=== PATIENT | male | born 1940 | race Caucasian/White ===

== ENCOUNTER → 2017-12-02 13:22 | Outpatient (CLI) | payer OTHER, SELFPAY | PROVIDERS: PCP Physician Assistant; Visit Provider Physician Assistant | DX: R97.20 Elevated prostate specific antigen [PSA] (principal) | CPT/HCPCS: 36415; 84153 ==

== ENCOUNTER → 2017-12-02 13:35 | Outpatient (CLI) | payer OTHER, SELFPAY ==
--- NOTE | 2017-12-02 13:37 | DI.RAD.S_ITS ---
PROCEDURE: XR CERVICAL SPINE 2V OR 3V INDICATIONS: 77 year-old male with neck pain. TECHNIQUE: 3 view(s) of the cervical spine were acquired. COMPARISON: None. FINDINGS: Bones: No fractures or dislocations to the T1 level. The lateral masses of C1 appear intact on the odontoid view. There is mild C5-C6 and C6-C7 disc degeneration. No suspicious bony lesions. Soft tissues: No prevertebral soft tissue swelling. IMPRESSION: Mild C5-C6 and C6-C7 disc degeneration. Dictated by: Shahzad Funk M.D. on 12/02/2017 at 14:00 Approved by: Shahzad Funk M.D. on 12/02/2017 at 14:01
== END ==
PROVIDERS: Family Provider Physician Assistant; PCP Physician Assistant; Visit Provider Physician Assistant
DX: M50.322 Other cervical disc degeneration at C5-C6 level (principal); R51 Headache
CPT/HCPCS: 36415; 72040; 84153

== ENCOUNTER → 2018-01-30 11:55 | Outpatient (CLI) | payer OTHER, SELFPAY ==
--- NOTE | 2018-01-30 11:59 | DI.MRI.S_ITS ---
PROCEDURE: MR CERVICAL SPINE WO CON INDICATIONS: Cervical spine pain - lower neck TECHNIQUE: Noncontrast sagittal T1 spin echo and T2 fast spin echo, sagittal STIR, foraminal oblique sagittal T2 fast spin echo, and axial gradient echo or T2 fast spin echo through the cervical spine. COMPARISON: [facility], CR, XR CERVICAL SPINE 2V OR 3V, 12/02/2017, 13:38. FINDINGS: Image quality: Excellent. Alignment and Curvature: There is normal bony alignment. Bone Marrow: Mild reactive endplate changes noted adjacent to the C5-C6 disc. Spinal Cord: Visualized spinal cord has normal size and signal. No cerebellar tonsillar herniation. Paraspinous Soft Tissues: No paravertebral masses. Prevertebral soft tissues are normal in thickness. C2-C3: Loss of disc signal. Mild, diffuse disc bulge. Small central disc protrusion superimposed on diffuse disc bulge. No central stenosis. Mild bilateral neural foraminal narrowing. No neural impingement. C3-C4: Loss of disc signal. Mild, diffuse disc bulge with small central disc protrusion. Moderate narrowing of the central canal. Mild left facet hypertrophy. Mild right and moderate left neural foraminal narrowing. No neural impingement. C4-C5: Loss of disc signal and slight loss of disc height. Mild, diffuse disc bulge with small central disc protrusion. Moderate narrowing of the central canal. Mild left facet hypertrophy. Mild bilateral uncovertebral joint hypertrophy. Moderate right and severe left neural foraminal narrowing with flattening deformity of the exiting left C5 nerve root. C5-C6: Loss of disc signal and height. Mild, diffuse disc bulge. Moderate narrowing of the central canal. Mild right and moderate left facet hypertrophy. Moderate bilateral uncovertebral joint hypertrophy. Severe right and moderate left neural foraminal narrowing with flattening deformity exiting right C6 nerve root. C6-C7: Loss of disc signal and height. Mild, diffuse disc bulge. Mild narrowing of the central canal. Mild right uncovertebral joint hypertrophy. Moderate right and mild left neural foraminal narrowing. No neural impingement. C7-T1: Loss of disc signal. No central stenosis. No neural foraminal narrowing. IMPRESSION: 1. Multilevel degenerative disc disease. 2. Multilevel facet arthropathy and uncovertebral joint hypertrophy. 3. Moderate C3-C4, C4-C5 and C5-C6 central canal narrowing. Mild C6-C7 central canal narrowing. 4. Moderate right and severe left C4-C5 neural foraminal narrowing. Severe right and moderate left C5-C6 neural foraminal narrowing. Moderate right and mild left C6-C7 neural foraminal narrowing. Mild right and moderate left C3-C4 neural foraminal narrowing. Mild bilateral C2-C3 neural foraminal narrowing. 5. Flattened deformity of the exiting left C5 nerve root and the exiting right C6 nerve root secondary to neural foraminal narrowing. Please correlate with clinical data. Dictated by: Sarahi Arnold MD, PhD on 01/30/2018 at 14:28 Approved by: Sarahi Arnold MD, PhD on 01/30/2018 at 14:45
--- NOTE | 2018-01-30 11:59 | DI.MRI.S_ITS ---
PROCEDURE: MR HEAD/BRAIN WO CON INDICATIONS: Headache > 3 months left side base of skull/occiput TECHNIQUE: Non-contrast axial T1 spin echo, axial T2 fast spin echo, sagittal and axial FLAIR, coronal T2 fast spin echo, axial gradient echo, axial diffusion and ADC through the brain. COMPARISON: [facility], CT, HEAD WITHOUT CONTRAST, 08/10/2007, 19:45. FINDINGS: Image quality: Excellent. CSF spaces: Ventricles appear symmetric in size and shape. Basal cisterns are patent. No extra-axial fluid collections. Brain: No intracranial bleeds or mass effects. There is mild cerebral volume loss for age. There are moderate to severe periventricular and deep white matter chronic small vessel ischemic changes. Brainstem appears normal. Diffusion-weighted images show no acute ischemic insults. No areas of encephalomalacia. No GRE weighted abnormalities identified in the brain parenchyma. Normal intravascular flow voids are present. Skull and face: Calvarial bone marrow is normal in signal. Orbits are normal. Sinuses: Sinuses and mastoids are clear. IMPRESSION: 1. No acute intracranial disease process. 2. Mild, diffuse cerebral volume loss. 3. Moderate to severe periventricular and subcortical white matter chronic microvascular ischemic changes. Dictated by: Sarahi Arnold MD, PhD on 01/30/2018 at 14:20 Approved by: Sarahi Arnold MD, PhD on 01/30/2018 at 14:24
== END ==
PROVIDERS: Family Provider Physician Assistant; PCP Physician Assistant; Visit Provider Physician Assistant
DX: M50.31 Other cervical disc degeneration, high cervical region (principal); M47.812 Spondylosis without myelopathy or radiculopathy, cervical region; M48.02 Spinal stenosis, cervical region; R51 Headache
CPT/HCPCS: 70551; 72141

== ENCOUNTER → 2018-03-10 14:04 | Outpatient (CLI) | payer OTHER, SELFPAY ==
--- NOTE | 2018-03-10 14:05 | DI.MRI.S_ITS ---
PROCEDURE: MR LUMBAR SPINE WO CON INDICATIONS: Low back pain right side TECHNIQUE: Noncontrast sagittal T1 spin echo and T2 fast echo, sagittal STIR, axial T1 and T2 fast spin echo through the lumbar spine. In cases with scoliosis, additional coronal T2 fast spin echo may be performed. COMPARISON: [facility], , L-SPINE WITHOUT CONTRAST, 12/02/2014, 10:42. [facility], CR, SPINE LUMB 2 OR 3VW, 01/05/2015, 15:38. FINDINGS: Image quality: Excellent. Alignment and Curvature: 5 lumbar type vertebral bodies are present by plain film. There is normal bony alignment. Bone Marrow: Marrow is of normal overall signal. No acute vertebral body compression fractures. Increased, mild reactive signal throughout the endplates of the lumbar spine. Spinal Cord: Conus medullaris terminates at the mid L1 level. Visualized cord demonstrates normal signal and size. There is a small lipoma of the filum terminalis, which does not contribute significantly to canal stenosis. Paraspinous Soft Tissues: No paravertebral masses. L1-L2: Moderate disc desiccation. Mild diffuse disc bulge. Mild facet hypertrophy bilaterally. Mild canal stenosis. Mild foraminal stenosis bilaterally. L2-L3: Moderate disc desiccation and mild disc height loss and mild diffuse disc bulge. Mild facet hypertrophy bilaterally. Mild canal stenosis. Mild foraminal stenosis bilaterally. No change. L3-L4: Moderate disc desiccation and moderate diffuse disc bulge. Mild disc height loss. Mild facet hypertrophy bilaterally. Mild canal stenosis. Mild foraminal stenosis bilaterally. No change. L4-L5: Moderate disc height loss and desiccation. Mild diffuse disc bulge/osteophyte. Mild facet and ligament hypertrophy. Mild canal stenosis. Moderate foraminal stenosis bilaterally. L5-S1: Moderate disc desiccation. Mild facet hypertrophy bilaterally. No significant canal stenosis. Mild foraminal stenosis bilaterally. No change. IMPRESSION: 1. Increased multilevel degenerative disc disease. Multilevel facet osteoarthritis. 2. No change in mild multilevel canal and foraminal stenoses. No neural impingement. Dictated by: Cuauhtemoc Mathew M.D. on 03/10/2018 at 16:26 Approved by: Cuauhtemoc Mathew M.D. on 03/10/2018 at 16:30
== END ==
PROVIDERS: Family Provider Physician Assistant; PCP Physician Assistant; Visit Provider Physician Assistant
DX: M54.5 Low back pain (principal); M51.16 Intervertebral disc disorders with radiculopathy, lumbar region; M47.26 Other spondylosis with radiculopathy, lumbar region; M48.061 Spinal stenosis, lumbar region without neurogenic claudication; M48.07 Spinal stenosis, lumbosacral region; N50.811 Right testicular pain; R26.9 Unspecified abnormalities of gait and mobility
CPT/HCPCS: 72148

== ENCOUNTER 2018-04-17 22:38 | Emergency (ER) | payer OTHER, SELFPAY ==
[2018-04-17 22:45] VITALS: BP 140/84; PULSE 69; RESP 16; TEMP 36.7; O2SAT 98; BMI 19.0
[2018-04-18] VITALS: BP 126/69; PULSE 60; RESP 16; O2SAT 98
--- NOTE | 2018-04-18 00:03 | DI.RAD.S_ITS ---
PROCEDURE: XR HIP W PEL IF DONE RT 2V INDICATIONS: pain no injury TECHNIQUE: AP pelvis with lateral view(s) of the right hip(s). COMPARISON: None. FINDINGS: Bones: No fractures or dislocations. Pelvic ring appears intact. No suspicious bony lesions. Mild bilateral hip osteoarthritis. Mild lumbar spine degenerative changes. Soft tissues: The visualized bowel gas pattern is normal. No suspicious soft tissue calcifications. IMPRESSION: No fracture. No acute osseous lesion. If symptoms and/or clinical suspicion for pathology persists, further assessment with repeat radiographs (7-10 days) or advanced imaging (e.g. CT, MRI or bone scan) may be helpful. Dictated by: Sarahi Arnold MD, PhD on 04/18/2018 at 8:44 Approved by: Sarahi Arnold MD, PhD on 04/18/2018 at 8:44
--- NOTE | 2018-04-18 00:03 | ED_ITS ---
HPI - Extremity Injury (Lower) General Chief Complaint: Extremity Injury, Lower Stated Complaint: RT HIP AND GROIN PAIN Time Seen by Provider: 04/17/18 23:27 Source: patient Mode of arrival: ambulatory Limitations: no limitations History of Present Illness HPI Narrative: Patient is a 78-year-old male who presents with right hip pain. He said he has had ongoing right hip pain for number of years however over the last 8 days has progressively gotten worse. He had an MRI at the end of March which did show increased multi level degenerative disc disease. Along with arthritis. He does have some radiation around to his groin and down his foot. He is taking meloxicam and Tylenol without any relief. He denies any fever. If he is resting he is okay. But once he starts weight-bearing and becomes quite painful for him. He has not fallen. Denies any testicular pain Related Data Home Medications Medication Instructions Recorded Confirmed acetaminophen 1,300 mg PO Q8HP PRN #0 12/18/16 02/13/18 ascorbic acid (vitamin C) 500 mg 1,000 mg PO .QDAY cap 12/09/17 02/13/18 capsule cholecalciferol (vitamin D3) 1,000 2,000 unit PO DAILY 12/09/17 02/13/18 unit capsule ibuprofen 200 mg tablet 200 mg PO QID PRN 02/08/18 02/13/18 Meloxicam 15 mg PO PRN 02/13/18 02/13/18 Previous Rx's Medication Instructions Recorded prednisone 20 mg PO DAILY #5 tab 04/18/18 tramadol 25 mg PO Q6H PRN #10 tab 04/18/18 Allergies Allergy/AdvReac Type Severity Reaction Status Date / Time amoxicillin Allergy headaches Verified 04/17/18 22:45 cephalexin Allergy stomach Verified 04/17/18 22:45 pain Review of Systems Review of Systems GENERAL: Denies chills, fatigue, malaise, fever, sweats, travel HEENT: Denies sinus pain, ear pain, sore throat, difficulty swallowing, neck pain RESPIRATORY: Denies dyspnea, cough, wheezing, hemoptysis, sputum. CARDIOVASCULAR: Denies chest pain, palpitations, orthopnea, edema GASTROINTESTINAL: Denies nausea, vomiting, abdominal pain, diarrhea, constipation, melena. : Denies dysuria, frequency, incontinence, hematuria, urinary retention, flank pain. MUSCULOSKELETAL: Right hip pain see HPI SKIN: No rash, no erythema, no pruritus NEUROLOGIC: Denies weakness, dizziness, headache, numbness, change in speech, confusion PSYCHIATRIC: No concerning psychosocial issues. 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) Cataracts, bilateral (Chronic Unknown) Degenerative disc disease, lumbar (Chronic Unknown) Elevated PSA (Chronic Unknown) Essential tremor (Chronic Unknown) Surgical History History of inguinal hernia repair (Resolved 11/2013) Hx of removal of cyst (Resolved 2009) Hx of vasectomy (Resolved 1968) Family History Father Kidney disease Mother Heart disease Brother Cancer Social History Smoking Status: Never smoker second hand exposure: No alcohol intake: former substance use type: does not use Exam Initial Vital Signs Initial Vital Signs: Vital Signs Temperature 98.1 F 04/17/18 22:45 Pulse Rate 69 04/17/18 22:45 Respiratory Rate 16 04/17/18 22:45 Blood Pressure 140/84 04/17/18 22:45 Pulse Oximetry 98 04/17/18 22:45 GENERAL: frail alert male in no acute distress HEENT: Head atraumatic,EOMI, pupils reactive, face symmetric CARDIOVASCULAR: Regular rate and rhythm without murmurs, rubs or gallops. RESPIRATORY: Breath sounds equal bilaterally, no wheezes rales or rhonchi. ABDOMEN: Soft, nontender. Normoactive bowel sounds all 4 quadrants. No guarding or rebound. : No CVA tenderness EXTREMITIES: Normal range of motion, no clubbing or edema. Neurovascularly intact NEUROLOGICAL: Alert and oriented x4.Normal gait and speech. Cranial nerves II through XII grossly intact. SKIN: Warm, dry, no laceration, no petechiae, no rashes or lesions. Course Orders Ordered: ED Orders 04/18/18 00:03 XR hip w pel if done RT 2V Stat Vital Signs - 8 hr 04/17/18 22:45 04/18/18 00:00 Temperature 98.1 F Pulse Rate 69 60 Respiratory Rate 16 16 Blood Pressure 140/84 Blood Pressure [Right Arm] 126/69 Pulse Oximetry 98 98 MDM - Extremity Injury (Lower) Imaging Data right hip x ray: Attestation: I personally reviewed and interpreted this imaging study as follows: My impression: No fracture MDM Narrative Medical decision making narrative: I have reviewed the interpretation of MRI. Pain today is likely a neuropathy and arthritis. He has a short drive home. Discussed with him pain medication however he says he does not have trouble sleeping at night and does not need any now. The he has been taking meloxicam for the last 8 days without any relief. Will try him on a short course of prednisone and tramadol. Discussed with him warning signs of tramadol and that it may increase falling however patient is already taking nonnarcotic medications. And still continues to have pain. Discharge Plan Departure Patient Disposition: Home Clinical Impression: Arthritis pain, hip, Neuropathy Discharge Date/Time: 04/18/18 00:51 Interventions: ED Discharge Assessment Last Done: 04/18/18 00:50 Instructions: Peripheral Neuropathy, DI for Osteoarthritis Activity Restrictions/Additional Instructions: *You have been diagnosed with arthritis, neuropathy *What to do: Increase activity as tolerated, see Orthopedics a.m. PCP as previously scheduled *Continue to take medications as directed Prednisone once a day for 5 days--while taking this DO NOT take ibuprofen, meloxicam,, Motrin, Aleve, naproxen, Advil or other NSAIDS Tramadol-break in half, take half tablet every 6 hr if needed for severe pain. This does cause rales the anus and unsteadiness and does put you at risk for falls. Please use walker or cane Tylenol (Acetaminophen) 650 mg every 4 hr if needed for mild pain *Follow up with your primary care provider in 2-3 days *Return to ER if you should have weakness, falls, numbness, tingling or any new , worsening or concerning symptoms Prescriptions: New prednisone 20 mg tablet 20 mg PO DAILY Qty: 5 RF: 0 tramadol 50 mg tablet 25 mg PO Q6H PRN (Reason: pain (scale score 7-10)) Qty: 10 RF: 0 No Action Meloxicam 15 mg PO PRNRF: 0 ibuprofen [Advil] 200 mg tablet 200 mg PO QID PRNRF: 0 cholecalciferol (vitamin D3) 1,000 unit capsule 2,000 unit PO DAILY RF: 0 ascorbic acid (vitamin C) 500 mg capsule 1,000 mg PO .QDAY RF: 0 acetaminophen 650 MG tablet extended release 1,300 mg PO Q8HP PRNQty: 0 RF: 0 Referrals: Rosanna Rodriguez PA-C [Primary Care Provider] -
== END 2018-04-18 00:51 | disposition home or self-care (01) ==
PROVIDERS: Emergency Provider Emergency Medicine; Family Provider Physician Assistant; PCP Physician Assistant
DX: M25.551 Pain in right hip (principal); G62.9 Polyneuropathy, unspecified
CPT/HCPCS: 73502; 99282; 99283

== ENCOUNTER → 2018-06-16 10:11 | Outpatient (CLI) | payer OTHER, SELFPAY ==
[2018-06-16 13:07] LABS: BUN Creatinine Ratio 23.8 (6-22); Blood Urea Nitrogen 19 mg/dL (9-20); Calcium 9.1 mg/dL (8.4-10.2); Carbon Dioxide 29 mmol/L (22-32); Chloride 101 mmol/L (98-107); Estimated Glomerular Filt Rate > 60.0 mL/min (>60); Glucose 83 mg/dL (80-110); HEMOLYSIS < 15 (0-50); Potassium 4.7 mmol/L (3.4-5.1); Sodium 143 mmol/L (137-145)
== END ==
PROVIDERS: PCP Physician Assistant; Visit Provider Family Medicine
DX: M54.16 Radiculopathy, lumbar region (principal); M54.2 Cervicalgia; M54.5 Low back pain; Z87.898 Personal history of other specified conditions
CPT/HCPCS: 36415; 80048; 84153

== ENCOUNTER → 2018-06-25 08:17 | Outpatient (CLI) | payer OTHER, SELFPAY ==
[2018-06-28 14:14] LABS: PSA Free % 19 % (calc) (> 25); PSA, Total 12.7 ng/mL (< 4.1)
== END ==
PROVIDERS: Family Provider Physician Assistant; PCP Physician Assistant; Visit Provider Physician Assistant
DX: R97.20 Elevated prostate specific antigen [PSA] (principal)
CPT/HCPCS: 36415; 84153; 84154

== ENCOUNTER → 2018-07-18 13:44 | Outpatient (CLI) | payer OTHER, SELFPAY ==
--- NOTE | 2018-07-18 13:47 | DI.US.S_ITS ---
PROCEDURE: US EXTREMITY NONVASC LOWER LT INDICATIONS: LOWER LEFT LEG SOFT TISSUE MASS TECHNIQUE: Real-time scanning was performed of the left inferior lateral lower leg, with image documentation. COMPARISON: None. FINDINGS: No mass or fluid collection seen. IMPRESSION: No sonographic abnormality. Dictated by: Arturo RANDLE Interpreted: Dany Fregoso MD on 07/18/2018 at 14:09 Approved by: Dany Fregoso M.D. on 07/18/2018 at 16:38
== END ==
PROVIDERS: PCP Physician Assistant; Visit Provider Physician Assistant
DX: R22.42 Localized swelling, mass and lump, left lower limb (principal)
CPT/HCPCS: 76882

== ENCOUNTER 2018-08-07 08:24 | Day surgery (SDC) | payer OTHER, SELFPAY ==
[2018-08-07] VITALS (8 sets, daily range): BP systolic 100–133; BP diastolic 64–83; PULSE 63–69; RESP 11–18; TEMP 36.3–36.7; O2SAT 97–100; BMI 19.5
--- NOTE | 2018-08-07 | PATH_ITS ---
[facility] Accession Number: [id number] . 01 Material submitted: . PART A: ANTRUM BIOPSY PART B: GE JUNCTION PART C: FUNDIC POLYP . 02 Diagnosis: A. Antrum Biopsy: Portions of body-type and antral mucosa with no diagnostic abnormality. Negative for intestinal metaplasia. Negative for dysplasia and malignancy. . B. GE Junction: Portions of squamocolumnar junctional mucosa with no diagnostic abnormality. Negative for intestinal metaplasia. Negative for dysplasia and malignancy. . C. Fundic Polyp: Fundic gland polyp. Negative for Helicobacter organisms by H/E stain. Negative for intestinal metaplasia. Negative for dysplasia and malignancy. [facility]/08/08/2018 . 02 Electronically signed: . Brittni Aguilar MD, Pathologist NPI- [id number] . 01 Gross description: . Received three formalin-filled containers each labeled with the patient's name. . A. In a container labeled antrum are two less than 0.1 to 0.1 cm portions of tissue. Entirely submitted in cassette A. B. In a container labeled GE junction, the specimen consists of two 0.1 to 0.2 cm portions of tissue. Entirely submitted in cassette B. C. In a container labeled fundic polyp, the specimen consists of a 0.3 cm portion of tissue. Entirely submitted in cassette C. ([facility]:[id number]) /[facility] . 02 Pathologist provided ICD-10: K31.7 . 02 CPT . 252386, [id number], [id number] Performed at: [address] [facility][note 3], [place], [place] [id number] MD Aramis Cope MD Phone: [phone] Performed at: 02 [facility] [address] [place] [id number] MD Lucie Bravo MD Phone: [phone]
--- NOTE | 2018-08-07 09:23 | PM.PREOP ---
Pre-operative Note Interval Note History & Physical reviewed/Exam performed by Physician: Yes Changes to H&P: No
[2018-08-07] MEDS: TETRACAINE/BENZOCAINE/BUTAMBEN (CETACAINE) BOTTLE 1 SPRAY TOP (09:30)
[2018-08-07] MEDS: LIDOCAINE 4% SOLN 50 ML 20 ML TOP (09:33)
[2018-08-07] MEDS: MIDAZOLAM 5 MG/5 ML VIAL IV (09:33)
[2018-08-07] MEDS: fentaNYL 250 MCG/5 ML INJ IV (09:34)
--- NOTE | 2018-08-07 09:47 | P.OP_ITS ---
Operative Date/Time/Diagnoses Date of procedure: 08/07/18 Time of procedure: 09:44 Pre-op diagnosis: Arroyo's esophagus Post-op diagnosis: same Procedure & Clinicians Procedure: Esophagogastroduodenoscopy with biopsies Same procedure as scheduled: Yes Indications: History of Arroyo's esophagus Surgeon: Althea Ferraro Anesthesia Type: Sedation (Versed 3 mg; fentanyl 75 mcg) Operative Notes Findings: 1. Normal duodenum 2. Normal antrum without any evidence of gastritis 3. One tiny polyp visualized in the fundus. Removed with cold forceps and retained for pathology 4. GE junction at 38 cm from the incisors with mucosal changes consistent with Arroyo's pathologic changes. 5. 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 Otherwise normal esophagus. Estimated Blood Loss (mL): 1 Procedure in detail: After obtaining informed consent, the patient was brought to the GI suite and placed in the left lateral decubitus position on the examination table. After placement of appropriate monitors, the patient was given incremental doses of Versed and Fentanyl until an appropriate level of sedation was achieved. A time out was held per SCOAP protocol. A bite block was gently placed between the patient's teeth. The endoscope was lubricated and then passed into the patient's posterior oropharynx. The esophagus was cannulated under direct vision and the scope was passed to the second portion of the duodenum without difficulty. The scope was then withdrawn with careful examination of all areas of the upper GI tract and muc robson. In the stomach, the instrument was retroflexed and the GE junction examined. The scope was straightened and the procedure continued with examination of the remainder of the upper GI tract. Findings are noted above. Air was aspirated from the stomach and the endoscope gently removed from the esophagus. The patient was allowed to awaken from sedation without difficulty and taken to the post-anesthesia care unit in good condition. Total sedation time was 15 min Complications: none Condition: stable Disposition: PACU Plan for aftercare: 1. Discharge to home 2. Consider referral to ENT for vocal cord paralysis 3. We will contact you with pathology results and any additional recommendations
== END 2018-08-07 11:01 | disposition home or self-care (01) ==
PROVIDERS: PCP Physician Assistant; Visit Provider Surgery
PROC: 0DJ08ZZ Inspection of Upper Intestinal Tract, Via Natural or Artificial Opening Endoscopic (ICD-10-PCS; CPT 43235; principal; 2018-08-07 09:45)
DX: K31.7 Polyp of stomach and duodenum (principal)
CPT/HCPCS: 43239; 99152; J2250; J3010

== ENCOUNTER → 2018-08-27 09:28 | Outpatient (CLI) | payer OTHER, SELFPAY ==
[2018-08-29 15:46] LABS: Fecal Immunochemical Test NOT DETECTED (NOT DETECTED)
== END ==
PROVIDERS: PCP Physician Assistant; Visit Provider Physician Assistant
DX: Z12.11 Encounter for screening for malignant neoplasm of colon (principal)
CPT/HCPCS: 82274

== ENCOUNTER → 2019-09-10 13:36 | Outpatient (CLI) | payer OTHER, SELFPAY ==
[2019-09-10 16:52] LABS: Alanine Aminotransferase 10 IU/L (<50); Albumin 4.1 g/dL (3.5-5.0); Albumin Globulin Ratio 1.4 (1.0-2.8); Alkaline Phosphatase 63 U/L (38-126); Aspartate Aminotransferase 19 IU/L (17-59); BUN Creatinine Ratio 16.3 (6-22); Bilirubin Total 0.5 mg/dL (0.2-1.3); Blood Urea Nitrogen 14 mg/dL (9-20); Calcium 9.2 mg/dL (8.4-10.2); Carbon Dioxide 31 mmol/L (22-32); Chloride 102 mmol/L (98-107); Estimated Glomerular Filt Rate > 60.0 mL/min (>60); Glucose 84 mg/dL (80-110); HEMOLYSIS < 15 (0-50); Potassium 4.4 mmol/L (3.4-5.1); Sodium 140 mmol/L (137-145); Total Protein 7.1 g/dL (6.3-8.2)
[2019-09-10 17:23] LABS: Prostate Specific Antigen 8.88 ng/mL (0.10-4.00)
== END ==
PROVIDERS: PCP Nurse Practitioner Family; Referring Provider Nurse Practitioner Family; Visit Provider Nurse Practitioner Family
DX: R97.20 Elevated prostate specific antigen [PSA] (principal); R79.9 Abnormal finding of blood chemistry, unspecified
CPT/HCPCS: 36415; 80053; 84153

== ENCOUNTER → 2019-09-12 08:15 | Outpatient (CLI) | payer OTHER, SELFPAY | PROVIDERS: PCP Nurse Practitioner Family; Referring Provider Nurse Practitioner Family; Visit Provider Nurse Practitioner Family | DX: Z12.11 Encounter for screening for malignant neoplasm of colon (principal) | CPT/HCPCS: 82274 ==

== ENCOUNTER → 2020-09-05 09:11 | Outpatient (CLI) | payer OTHER, SELFPAY ==
[2020-09-06 18:51] LABS: Fecal Immunochemical Test Negative (Negative)
== END ==
PROVIDERS: PCP Nurse Practitioner Family; Referring Provider Nurse Practitioner Family; Visit Provider Nurse Practitioner Family
DX: Z12.11 Encounter for screening for malignant neoplasm of colon (principal)
CPT/HCPCS: 82274

== ENCOUNTER → 2020-09-29 15:27 | Outpatient (CLI) | payer MEDICARE, SELFPAY ==
[2020-09-29] MEDS: COVID-19 VACC #1, MRNA(MOD) 100 MCG/0.5 ML VIAL IM (15:37)
== END ==
PROVIDERS: PCP Nurse Practitioner Family; Visit Provider Internal Medicine
DX: Z23 Encounter for immunization (principal)
CPT/HCPCS: 0011A; 91301

== ENCOUNTER 2020-10-19 12:14 | Emergency (ER) | payer OTHER, SELFPAY ==
[2020-10-19] VITALS (7 sets, daily range): BP systolic 131–141; BP diastolic 76–82; PULSE 71–89; RESP 16; TEMP 36.5; O2SAT 94–98; BMI 18.8
[2020-10-19 12:50] LABS: Add Manual Diff / Slide Review NO; Basophils Absolute Auto 0 /uL (0-100); Basophils Percent Auto 0.6 % (0-2); Eosinophils Absolute Auto 200 /uL (0-450); Hematocrit 39.7 % (41-53); Hemoglobin 13.3 g/dL (13.5-17.5); Lymphocytes Absolute Auto 600 /uL (1100-4500); Lymphocytes Percent Auto 17.1 % (25-40); Mean Corpuscular HGB Conc 33.5 % (30-36); Mean Corpuscular Hemoglobin 29.8 PG (26-34); Mean Corpuscular Volume 88.9 fL (80-100); Monocytes Absolute Auto 400 /uL (0-900); Monocytes Percent Auto 11.2 % (3-14); Neutrophils Absolute Auto 2500 /uL (1500-7000); Neutrophils Percent Auto 66.1 % (50-75); Platelet Count 191 X10^3/uL (150-400); Red Blood Cell Count 4.46 X10^6/uL (4.5-5.9); Red Cell Distribution Width 14.5 % (11.6-14.8); White Blood Cell Count 3.8 X10^3/uL (4.5-11.0)
[2020-10-19 12:53] LABS: INR 1.1 (0.9-1.3); Prothrombin Time 12.2 SECONDS (10.1-12.7)
[2020-10-19 12:59] LABS: Alanine Aminotransferase 11 IU/L (<50); Albumin Globulin Ratio 1.4 (1.0-2.8); Alkaline Phosphatase 59 U/L (38-126); Aspartate Aminotransferase 22 IU/L (17-59); BUN Creatinine Ratio 21.9 (6-22); Bilirubin Total 0.4 mg/dL (0.2-1.3); Blood Urea Nitrogen 21 mg/dL (9-20); Calcium 9.4 mg/dL (8.4-10.2); Carbon Dioxide 27 mmol/L (22-32); Chloride 103 mmol/L (98-107); Estimated Glomerular Filt Rate > 60.0 mL/min (>60); Globulin 2.8 g/dL (1.7-4.1); Glucose 108 mg/dL (80-110); HEMOLYSIS < 15 (0-50); Potassium 4.5 mmol/L (3.4-5.1); Sodium 137 mmol/L (137-145); Total Protein 6.8 g/dL (6.3-8.2)
--- NOTE | 2020-10-19 15:32 | ED_ITS ---
HPI - Epistaxis General Chief complaint: Nasal Problem Stated complaint: Nose bleed 4 hours Time Seen by Provider: 10/19/20 14:35 History of Present Illness HPI Narrative: 80-year-old gentleman with a history of benign intention tremor, Arroyo's esophagus and a history of epistaxis typically in the fall in 2018 and 2019. This year he is now having some symptoms in the spring and he is not quite sure how to proceed. He states that in the morning he wakes up with a minor amount of bloody nasal discharge that seems to resolve. Today he woke up and began having some bleeding at 7:30 a.m. this morning and 4 hours later it was still bleeding. He presents to the emergency room for additional help. He is not orthostatic, complains of no fevers, cough, no headaches however he does n otice over the last couple of days that he has had increasing sneezing, runny nose and itchy eyes (there is been quite a bit of pollen in the air over these last couple days as well). He is having no palpitations, no chest pain, no abdominal pain no dysuria no diarrhea. Related Data Home Medications Medication Instructions Recorded Confirmed acetaminophen 1,300 mg PO Q8HP PRN #0 12/18/16 09/10/19 ascorbic acid (vitamin C) 500 mg 1,000 mg PO .QDAY cap 12/09/17 09/10/19 capsule cholecalciferol (vitamin D3) 25 2,000 unit PO DAILY 12/09/17 09/10/19 mcg (1,000 unit) capsule ibuprofen 200 mg tablet 200 mg PO QID PRN 02/08/18 09/10/19 Previous Rx's Medication Instructions Recorded propranolol 10 mg tablet 10 mg PO TID PRN #60 tab 12/01/19 gabapentin 100 mg capsule See Rx Instructions PO BEDTIME #60 07/29/20 cap meloxicam 15 mg tablet 15 mg PO DAILY PRN #30 tab 09/09/20 fluticasone propionate [Flonase 1 spray INTRANASAL DAILY #9.9 ml 10/19/20 Allergy Relief] Allergies Allergy/AdvReac Type Severity Reaction Status Date / Time amoxicillin Allergy Intermediate headaches Verified 09/10/19 10:19 cephalexin Allergy Intermediate stomach Verified 09/10/19 10:19 pain tramadol AdvReac Severe Dizziness, Verified 09/10/19 10:19 insomnia and itching Review of Systems Review of Systems Narrative: Remainder of complete review of systems is otherwise unremarkable except for that included in the HPI. 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 (Unknown) Cataracts, bilateral (Unknown) Degenerative disc disease, lumbar (Unknown) Elevated PSA (Unknown) Essential tremor (Unknown) Surgical History History of inguinal hernia repair (11/2013) Hx of removal of cyst (2009) Hx of vasectomy (1968) Family History Father Kidney disease Mother Heart disease Hypertension Brother Cancer Social History Smoking Status: Never smoker second hand exposure: No alcohol intake: former substance use type: does not use Smoking Status: Never smoker Exam Narrative Exam Narrative: General: Frail but Alert appropriate in no acute distress HEENT: Epistaxis has stopped. There are no obvious bleeding areas on either side of the septum, no obvious clots particularly on the right side where he still feels that he is ?clogged?. Voice is hoarse Respiratory: Able to speak in full sentences, no obvious respiratory distress Skin: No obvious rashes, warm and dry Neurologic: Grossly intact no obvious asymmetries or abnormalities Psych: appropriate insight and affect, cooperative Initial Vital Signs Initial Vital Signs: Vital Signs Pulse Oximetry 95 10/19/20 12:16 Course Orders Ordered: ED Orders 10/19/20 12:36 Complete Blood Count AUTO DIFF Stat Comprehensive Metabolic Panel Stat Prothrombin Time INR Stat Vital Signs Vital signs: Vital Signs - 8 hr 10/19/20 12:16 10/19/20 12:17 10/19/20 12:18 Temperature 97.7 F Pulse Rate 72 76 Respiratory Rate 16 Blood Pressure 131/77 131/77 Pulse Oximetry 95 98 97 10/19/20 12:30 10/19/20 14:42 10/19/20 14:43 Temperature Pulse Rate 71 72 Respiratory Rate Blood Pressure 135/82 135/82 Pulse Oximetry 97 96 96 MDM - Epistaxis Medical Records Attestation: I reviewed the patient's medical records. Lab Data Attestation: I reviewed the patient's lab results. Result diagrams: 10/19/20 12:36 10/19/20 12:36 Labs: Lab Results 10/19/20 10/19/20 10/19/20 Range/Units 12:36 12:36 12:36 WBC 3.8 L (4.5-11.0) X10^3/uL RBC 4.46 L (4.5-5.9) X10^6/uL Hgb 13.3 L (13.5-17.5) g/dL Hct 39.7 L (41-53) % MCV 88.9 (80-100) fL MCH 29.8 (26-34) PG MCHC 33.5 (30-36) % RDW 14.5 (11.6-14.8) % Plt Count 191 (150-400) X10^3/uL Neut % (Auto) 66.1 (50-75) % Lymph % (Auto) 17.1 L (25-40) % [place] % (Auto) 11.2 (3-14) % Eos % (Auto) 5.0 H (2-4) % Baso % (Auto) 0.6 (0-2) % Neut # (Auto) 2500 (8762-8989) /uL Lymph # (Auto) 600 L (4233-0816) /uL [place] # (Auto) 400 (0-900) /uL Eos # (Auto) 200 (0-450) /uL Baso # (Auto) 0 (0-100) /uL PT 12.2 (10.1-12.7) SECONDS INR 1.1 (0.9-1.3) Sodium 137 (137-145) mmol/L Potassium 4.5 (3.4-5.1) mmol/L Chloride 103 (98-107) mmol/L Carbon Dioxide 27 (22-32) mmol/L BUN 21 H (9-20) mg/dL Creatinine 0.96 (0.66-1.25) mg/dL Estimated GFR > 60.0 (>60) mL/min BUN/Creatinine Ratio 21.9 (6-22) Glucose 108 (80-110) mg/dL Calcium 9.4 (8.4-10.2) mg/dL Total Bilirubin 0.4 (0.2-1.3) mg/dL AST 22 (17-59) IU/L ALT 11 (<50) IU/L Alkaline Phosphatase 59 (38-126) U/L Total Protein 6.8 (6.3-8.2) g/dL Albumin 4.0 (3.5-5.0) g/dL Globulin 2.8 (1.7-4.1) g/dL Albumin/Globulin Ratio 1.4 (1.0-2.8) MDM Narrative Medical decision making narrative: Otherwise healthy 80-year-old gentleman presents with epistaxis that is been going on for at least 4 hours by the time he presents to the emergency room and seems to be seasonal and increasing over the last 2 years. With simple clamp the nose bleed has stopped. He is having some pinkish discharge suggesting that there is still a clot on the right side that is causing the clogging. He has not been able to gently blow this out yet. He is producing some clear sputum and is not continuing to bleed at this time. Given the seasonal complaints and the other seasonal allergy type symptoms of which he complains today, I suspect that this may be related to seasonal allergies. He has had success with using gel saline nose lubricants in the past will have him continue that. He is also found a humidifier helpful and will have him try Flonase. Asked him to follow-up with his primary care physician. He is safe for home discharge Discharge Plan Departure Patient Disposition: Home Clinical Impression: Epistaxis, Essential tremor, Acute seasonal allergic rhinitis Instructions: DI for Nosebleed Activity Restrictions/Additional Instructions: Thank you for coming in today As you suggested, I suspect that these nose bleeds are related to some type of allergies. There is no continued bleeding at this point however you do still have a clot in the right side and until that comes out you continue to have that very light bloody drainage. Please try the gel saline nasal solution that you were successful with in the past. In addition, I am going to prescribe Flonase, 1 squirt in each nostril to help with allergy type symptoms. A prescription was electronically transmitted to [facility] for you today Do try the humidifier as that seemed to help in the past You will have to see if you feel better with the window closed at night. Please follow-up with your primary care physician and feel free to return to the emergency department if you have further issues. Prescriptions: New fluticasone propionate [Flonase Allergy Relief] 50 mcg/actuation spray,suspension 1 spray intranasal DAILY Qty: 9.9 RF: 1 No Action ibuprofen [Advil] 200 mg tablet 200 mg PO QID PRNRF: 0 cholecalciferol (vitamin D3) 1,000 unit capsule 2,000 unit PO DAILY RF: 0 ascorbic acid (vitamin C) 500 mg capsule 1,000 mg PO .QDAY RF: 0 acetaminophen 650 MG tablet extended release 1,300 mg PO Q8HP PRNQty: 0 RF: 0 propranolol 10 mg tablet 10 mg PO TID PRN (Reason: Essential tremor) Qty: 60 RF: 3 gabapentin 100 mg capsule See Rx Instructions PO BEDTIME Qty: 60 RF: 3 meloxicam 15 mg tablet 15 mg PO DAILY PRN (Reason: pain) Qty: 30 RF: 0 Referrals: Romelia Arriola ARNP [Primary Care Provider] -
== END 2020-10-19 16:02 | disposition home or self-care (01) ==
PROVIDERS: Emergency Medicine; Emergency Provider Emergency Medicine; PCP Nurse Practitioner Family
DX: R04.0 Epistaxis (principal); R49.8 Other voice and resonance disorders; J30.2 Other seasonal allergic rhinitis
CPT/HCPCS: 80053; 85025; 85610; 99281; 99283

== ENCOUNTER → 2020-11-18 12:12 | Outpatient (CLI) | payer MEDICARE, SELFPAY ==
[2020-11-18] MEDS: COVID-19 VACC #2, MRNA(MOD) 100 MCG/0.5 ML VIAL IM (12:21)
== END ==
PROVIDERS: PCP Nurse Practitioner Family; Visit Provider Internal Medicine
DX: Z23 Encounter for immunization (principal)
CPT/HCPCS: 0012A; 91301

== ENCOUNTER → 2021-09-04 11:00 | Outpatient (CLI) | payer OTHER, SELFPAY ==
[2021-09-06 08:20] LABS: Fecal Immunochemical Test Negative (Negative)
== END ==
PROVIDERS: PCP Nurse Practitioner Family; Referring Provider Nurse Practitioner Family; Visit Provider Nurse Practitioner Family
DX: Z12.11 Encounter for screening for malignant neoplasm of colon (principal)
CPT/HCPCS: 82274

== ENCOUNTER → 2021-09-25 10:15 | Outpatient (CLI) | payer OTHER, SELFPAY ==
[2021-09-25 12:45] LABS: COVID19 -Nasal RAPID Negative (Negative)
== END ==
PROVIDERS: PCP Family Medicine; Visit Provider Surgery
DX: Z01.812 Encounter for preprocedural laboratory examination (principal); Z20.822 Contact with and (suspected) exposure to COVID-19
CPT/HCPCS: 87635; C9803

== ENCOUNTER 2021-09-26 08:57 | Day surgery (SDC) | payer OTHER, SELFPAY ==
[2021-09-26] VITALS (7 sets, daily range): BP systolic 121–147; BP diastolic 70–80; PULSE 57–89; RESP 15–16; TEMP 35.9–36.5; O2SAT 91–98; BMI 19.4
--- NOTE | 2021-09-26 | PATH_ITS ---
[facility] Accession Number: [id number] . 01 Material submitted: . esophagus, E-G Junction - GE JUNCTION BIOPSY . 02 Diagnosis: GE Junction Biopsy: Squamous mucosa with no diagnostic abnormality. Separate fragments of glandular epithelium; negative for intestinal metaplasia, dysplasia, or malignancy. Intraepithelial eosinophils are not increased. Negative for dysplasia or malignancy. [facility] 09/28/2021 1643 Local . 02 Electronically signed: . Brittni Aguilar MD, Pathologist NPI- [id number] . 01 Gross description: . GE JUNCTION BIOPSY: Received in formalin is 1 fragment(s) of [place], soft tissue measuring 0.2 x 0.2 x 0.1 cm submitted entirely in 1 cassette(s) /[facility] 09/28/2021 0107 Local . 02 Pathologist provided ICD-10: Z87.19 . 02 CPT . 034278 Specimen Comment: A courtesy copy of this report has been sent to [phone] Performed at: [address] [facility] Cyt[facility] [address] [facility], [place], [place] [id number] MD Aramis Cope MD Phone: [phone] Performed at: 02 [facility] [address] [place], [place] [id number] MD Lucie Bravo MD Phone: [phone]
[2021-09-26] MEDS: LACTATED RINGERS 1,000 ML 200 ML IV (09:55)
--- NOTE | 2021-09-26 10:16 | P.HP_ITS ---
History of Present Illness History of Present Illness Date Patient Seen: 09/26/21 Time Patient Seen: 10:16 Chief complaint: SDC Narrative: 81-year-old man history of Arroyo's esophagus here for screening esophagoduodenoscopy. Please refer to the H& P from July 2021 for further detail. No interval changes in health. 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 (Unknown) Cataracts, bilateral (Unknown) Degenerative disc disease, lumbar (Unknown) Elevated PSA (Unknown) Essential tremor (Unknown) Hearing deficit Onychomycosis Surgical History History of inguinal hernia repair (11/2013) Hx of cataract surgery Hx of removal of cyst (2009) Hx of vasectomy (1968) Family & Social History Family History Father Kidney disease Mother Heart disease Hypertension Brother Cancer Social History: household members none Tobacco & Substance use: Smoking Status Never smoker alcohol intake former Substance Use Type does not use Meds Home Medications and Allergies Home Medications Medication Instructions Recorded Confirmed Type acetaminophen 650 mg 1,300 mg PO Q8HP PRN #0 12/18/16 09/26/21 History tablet,extended release ibuprofen 200 mg tablet (Advil) 200 mg PO QID PRN 02/08/18 09/26/21 History fluticasone propionate 50 1 spray INTRANASAL DAILY #9.9 ml 03/08/21 09/26/21 Rx mcg/actuation nasal spray,suspension (Flonase Allergy Relief) meloxicam 15 mg tablet 15 mg PO DAILY PRN #30 tab 03/08/21 09/26/21 Rx ascorbic acid (vitamin C) 500 mg 2,000 mg PO .QDAY cap 07/06/21 09/26/21 History capsule cholecalciferol (vitamin D3) 25 1,000 unit PO DAILY cap 07/06/21 09/26/21 History mcg (1,000 unit) capsule gabapentin 100 mg capsule See Rx Instructions .ROUTE 09/05/21 09/26/21 Rx .COMPLEX #90 cap Allergies Allergy/AdvReac Type Severity Reaction Status Date / Time amoxicillin Allergy Intermediate headaches Verified 09/26/21 09:29 cephalexin Allergy Intermediate stomach Verified 09/26/21 09:29 pain tramadol AdvReac Severe Dizziness, Verified 09/26/21 09:29 insomnia and itching Exam Vital Signs (past 8 hours): - 09/26/21 09:43 Temperature 97.7 F Pulse Rate 58 L Respiratory Rate 16 Blood Pressure 130/76 Pulse Oximetry 98 Oxygen Delivery Method Room Air Narrative Exam Narrative: General elderly male alert oriented no acute distress Chest nonlabored respirations Abdomen soft nontender nondistended Assessment & Plan Assessment & Plan narrative: 81-year-old man history of Arroyo's esophagus here for screening esophagoduodenoscopy. Technical details of procedure were discussed with the patient. Procedural risks including bleeding, missed diagnosis, intestinal perforation were discussed. His questions been answered she is in agreement with this plan. Time Spent With Patient Critical Care time: I spent a total of [] minutes of critical care time on this patient's care toda y; this time is exclusive of procedural time.
[2021-09-26] MEDS: LIDOCAINE 4% SOLN 50 ML 20 ML TOP (10:20)
[2021-09-26] MEDS: MIDAZOLAM 5 MG/5 ML VIAL IV (10:22)
[2021-09-26] MEDS: fentaNYL 250 MCG/5 ML INJ IV (10:23)
--- NOTE | 2021-09-26 10:33 | P.OP.EGD_ITS ---
Operative Date/Time/Diagnoses Date of procedure: 09/26/21 Time of procedure: 10:33 Pre-op diagnosis: History of Arroyo's esophagus Post-op diagnosis: same Procedure & Clinicians Study performed: Esophagoduodenoscopy with biopsy Same procedure as scheduled: Yes Indications: History of Arroyo's esophagus Surgeon: Cam Davis Procedure Notes Procedure in detail: Patient placed in left lateral decubitus position. Time out was performed. Pro cedural sedation was administered with Versed and Fentanyl. A bite block was placed. the scope was inserted into the mouth and advanced through the esophagus and into the stomach. The pylorus was intubated and the duodenum was normal to the 2nd portion. The scope was retroflexed within the stomach and there was no hiatal hernia. No ulcers, or gastritis. The scope was withdrawn into the esophagus the Z line was seen at 40 cm from the incisions. There was no rosibel Arroyo's esophagitis, masses or strictures. Biopsy of the GE junction was performed with forceps. Was desufflated and scope removed. Patient tolerated procedure well. Specimen(s): other (GE junction biopsy) Complications: none Impression: Normal esophagus Post-procedure Recommendations: Will call with biopsy results Disposition: same day surgery
[2021-09-26] MEDS: ONDANSETRON 4 MG/2 ML INJ IV (11:34)
== END 2021-09-26 12:40 | disposition home or self-care (01) ==
PROVIDERS: PCP Family Medicine; Referring Provider Surgery; Visit Provider Surgery
PROC: 0DJ08ZZ Inspection of Upper Intestinal Tract, Via Natural or Artificial Opening Endoscopic (ICD-10-PCS; CPT 43235; principal; 2021-09-26 10:00)
DX: Z87.19 Personal history of other diseases of the digestive system (principal)
CPT/HCPCS: 43239; J2250; J2405; J3010

== ENCOUNTER 2021-10-28 09:01 | Emergency (ER) | payer OTHER, SELFPAY ==
[2021-10-28] VITALS (16 sets, daily range): BP systolic 114–144; BP diastolic 60–83; PULSE 71–86; RESP 18–22; TEMP 36.9; O2SAT 96–99; BMI 18.2
[2021-10-28 09:50] LABS: COVID19 -Nasal RAPID POSITIVE (Negative)
--- NOTE | 2021-10-28 10:39 | ED_ITS ---
HPI - Nausea/Vomiting/Diarrhea General Chief complaint: Nausea/Vomiting/Diarrhea Stated complaint: Dark urine,runny nose,cough ,chills Time Seen by Provider: 10/28/21 09:42 Source: family Mode of arrival: Ambulatory History of Present Illness HPI Narrative: 81-year-old male. Earlier this week had a root canal. The dentist put him on a dose of antibiotics. Shortly after the onset of the antibiotics he started to have diarrhea. He contacted the dentist to told him to stop taking the antibiotics. He continues to have diarrhea. He also states that he has had some dark colored urine and some chills and a cough and runny nose. No a bdominal pain. Related Data Home Medications Medication Instructions Recorded Confirmed acetaminophen 650 mg 1,300 mg PO Q8HP PRN #0 12/18/16 09/26/21 tablet,extended release ibuprofen 200 mg tablet (Advil) 200 mg PO QID PRN 02/08/18 09/26/21 ascorbic acid (vitamin C) 500 mg 2,000 mg PO .QDAY cap 07/06/21 09/26/21 capsule cholecalciferol (vitamin D3) 25 1,000 unit PO DAILY cap 07/06/21 09/26/21 mcg (1,000 unit) capsule Previous Rx's Medication Instructions Recorded fluticasone propionate 50 1 spray INTRANASAL DAILY #9.9 ml 03/08/21 mcg/actuation nasal spray,suspension (Flonase Allergy Relief) meloxicam 15 mg tablet 15 mg PO DAILY PRN #30 tab 03/08/21 gabapentin 100 mg capsule See Rx Instructions .ROUTE 09/05/21 .COMPLEX #90 cap nirmatrelvir 150 mg x 2-ritonavir See Rx Instructions .ROUTE 10/28/21 100 mg tablet (EUA) (Paxlovid .COMPLEX #30 tab (EUA)) Allergies Allergy/AdvReac Type Severity Reaction Status Date / Time amoxicillin Allergy Intermediate headaches Verified 09/26/21 09:29 cephalexin Allergy Intermediate stomach Verified 09/26/21 09:29 pain tramadol AdvReac Severe Dizziness, Verified 09/26/21 09:29 insomnia and itching Review of Systems Constitutional Constitutional: Reports as per HPI and Reports system reviewed and no additional complaints, except as documented ENT Ears, Nose, Mouth, and Throat: Reports system reviewed and no additional complaints, except as documented and Reports as per HPI Cardiovascular Cardiovascular: Reports system reviewed and no additional complaints, except as documented Respiratory Respiratory: Reports system reviewed and no additional complaints, except as documented Gastrointestinal Gastrointestinal: Reports as per HPI and Reports system reviewed and no additional complaints, except as documented Genitourinary Genitourinary: Reports system reviewed and no additional complaints, except as documented Integumentary/Breasts Skin/Breast: Reports system reviewed and no additional complaints, except as documented Neurologic Neurologic: Reports system reviewed and no additional complaints, except as documented Hematologic/Lymphatic On Anticoagulants: No 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 (Unknown) Cataracts, bilateral (Unknown) Degenerative disc disease, lumbar (Unknown) Elevated PSA (Unknown) Essential tremor (Unknown) Hearing deficit Onychomycosis Surgical History History of inguinal hernia repair (11/2013) Hx of cataract surgery Hx of removal of cyst (2009) Hx of vasectomy (1968) Family History Father Kidney disease Mother Heart disease Hypertension Brother Cancer Social History household members: none housing: other Previous occupational history: retired Smoking Status: Never smoker second hand exposure: No alcohol intake: former substance use type: does not use Smoking Status: Never smoker Substance Use Type: does not use Exam Initial Vital Signs Initial Vital Signs: Vital Signs Temperature 98.5 F 10/28/21 09:06 Pulse Rate 85 10/28/21 09:06 Respiratory Rate 18 10/28/21 09:06 Blood Pressure 119/63 10/28/21 09:06 Pulse Oximetry 98 10/28/21 09:06 Const General: cooperative and comfortable HENMT Head: normal to inspection and normocephalic Mouth: moist mucous membranes Resp Effort & Inspection: normal respiratory effort Auscultation: clear to auscultation bilaterally Cardio Rate: regular rate Rhythm: regular rhythm GI Inspection: normal to inspection and non-distended Palpation: soft Skin General: no rashes or lesions noted Neuro General: patient alert, patient awake and moves all extremities Speech: speech normal Extrem General: normal to inspection and capillary refill normal Psych Appearance: grossly normal Scores GCS Ingrid coma scale eye opening: Spontaneous Ingrid coma scale verbal response: Orientated Ingrid coma scale motor response: Obey commands Ingrid coma scale total score: 15 Course Orders Ordered: ED Orders 10/28/21 09:15 COVID19 -Nasal RAPID/Pre-Proc Stat 10/28/21 10:35 Complete Blood Count AUTO DIFF Stat Comprehensive Metabolic Panel Stat Lipase Stat 10/28/21 14:28 Urine Culture Stat Urine Microscopic Stat Discontinued Medications Sodium Chloride (Normal Saline 0.9%) 1,000 mls @ 1,000 mls/hr IV BOLUS ONE Stop: 10/28/21 11:26 Last Infusion: 10/28/21 12:20 Dose: 0 mls/hr Documented by: Admin: 10/28/21 10:45 Dose: 1,000 mls/hr Documented by: ANGELO Sodium Chloride (Normal Saline 0.9%) 1,000 mls @ 500 mls/hr IV BOLUS ONE Stop: 10/28/21 14:35 Last Infusion: 10/28/21 14:39 Dose: 0 mls/hr Documented by: Admin: 10/28/21 12:38 Dose: 500 mls/hr Documented by: ANGELO Vital Signs Vital signs: Vital Signs - 8 hr 10/28/21 09:06 10/28/21 10:11 10/28/21 10:12 Temperature 98.5 F Pulse Rate 85 74 75 Respiratory Rate 18 Blood Pressure 119/63 114/62 Pulse Oximetry 98 96 97 10/28/21 10:30 10/28/21 11:00 10/28/21 11:30 Temperature Pulse Rate 80 72 71 Respiratory Rate 18 18 18 Blood Pressure 138/69 135/65 144/63 H Pulse Oximetry 98 99 10/28/21 12:00 10/28/21 12:30 10/28/21 12:31 Temperature Pulse Rate 75 80 86 Respiratory Rate 20 20 Blood Pressure 126/64 134/83 Pulse Oximetry 98 98 10/28/21 13:00 10/28/21 13:30 10/28/21 14:00 Temperature Pulse Rate 75 80 78 Respiratory Rate 20 20 19 Blood Pressure 127/70 127/60 133/64 Pulse Oximetry 98 97 98 10/28/21 14:30 Temperature Pulse Rate 75 Respiratory Rate 20 Blood Pressure Pulse Oximetry 98 MDM - Nausea/Vomiting/Diarrhea Lab Data Attestation: I reviewed the patient's lab results. Result diagrams: 10/28/21 10:35 10/28/21 10:35 Labs: Lab Results 10/28/21 10/28/21 10/28/21 Range/Units 09:15 10:35 10:35 WBC 5.1 (4.5-11.0) X10^3/uL RBC 4.29 L (4.5-5.9) X10^6/uL Hgb 12.6 L (13.5-17.5) g/dL Hct 37.9 L (41-53) % MCV 88.3 (80-100) fL MCH 29.3 (26-34) PG MCHC 33.2 (30-36) % RDW 15.4 H (11.6-14.8) % Plt Count 159 (150-400) X10^3/uL Neut % (Auto) 73.1 (50-75) % Lymph % (Auto) 8.5 L (25-40) % [place] % (Auto) 17.8 H (3-14) % Eos % (Auto) 0.4 L (2-4) % Baso % (Auto) 0.2 (0-2) % Neut # (Auto) 3700 (4435-2509) /uL Lymph # (Auto) 400 L (6394-1827) /uL [place] # (Auto) 900 (0-900) /uL Eos # (Auto) 0 (0-450) /uL Baso # (Auto) 0 (0-100) /uL Sodium 140 (137-145) mmol/L Potassium 4.0 (3.4-5.1) mmol/L Chloride 107 (98-107) mmol/L Carbon Dioxide 28 (22-32) mmol/L BUN 18 (9-20) mg/dL Creatinine 0.96 (0.66-1.25) mg/dL Estimated GFR > 60 (>60) mL/min BUN/Creatinine Ratio 18.8 (6-22) Glucose 88 (80-110) mg/dL Calcium 8.4 (8.4-10.2) mg/dL Total Bilirubin 0.5 (0.2-1.3) mg/dL AST 28 (17-59) IU/L ALT 19 (<50) IU/L Alkaline Phosphatase 63 (38-126) U/L Total Protein 7.0 (6.3-8.2) g/dL Albumin 3.8 (3.5-5.0) g/dL Globulin 3.2 (1.7-4.1) g/dL Albumin/Globulin Ratio 1.2 (1.0-2.8) Lipase 37 (23-300) U/L SARS-CoV-2 (PCR) Positive H (Negative) Urine Dip Bedside Urine Glucose Negative Bedside Urine Bilirubin - Negative Bedside Urine Ketone +++ 80 Urine Specific [place] 1.030 Bedside Urine Occult Blood - Negative Bedside Urine pH 6.0 Bedside Urine Protein +/- 15 Bedside Urine Urobilinogen - Negative Bedside Urine Nitrite - Negative Bedside Urine Leukocytes - Negative Esterase MDM Narrative Medical decision making narrative: Patient is well-appearing. His labs are unremarkable except for his positive COVID test. He is not hypoxic. Not tachypneic. Has a clear lung exam. I suspect that his upper respiratory symptoms runny nose and cough and chills are secondary to the COVID. Given his age and the fact that he has only had these symptoms for 3 days will start him on Paxlovid. He does understand this is approved under an emergency authorization. The suspect that his diarrhea secondary to the antibiotics that he was on for his root canal. He is afebrile. Does not have a leukocytosis and a normal sodium. Low suspicion for C diff. Shanique shirley has been here in the emergency department for several hours without having a bowel movement. His ketones are positive in his urine. No signs of urinary tract infection. I suspect that his dark colored urine his dehydration most likely from the diarrhea. No indication for other antibiotics. He is tolerating oral intake. Will discharge home. He was given return precautions and follow-up instructions. For understanding agreement. Discharge Plan Departure Patient Disposition: Home Clinical Impression: COVID-19, Dehydration, Diarrhea Instructions: Diarrhea, DI for COVID-19 (Suspected or Confirmed ) Activity Restrictions/Additional Instructions: You were positive for COVID-19 today. You can take Tylenol for any fevers or body aches. Please follow-up current CDC guidelines with regard to quarantine. Be sure to increase your fluid intake. We are going to start you on a medicine called paxlovid which is currently approved under the FDA emergency authorization for the use in high-risk individuals who are positive for COVID. It was electronically transmitted to Krish. It is important that she start this medication as soon as possible. This medication can prevent a progression to a more severe disease. Contact your primary doctor for follow-up. Return to the emergency department for any new or worsening symptoms. Prescriptions: New Paxlovid (EUA) 150 mg x 2- 100 mg tablet See Rx Instructions .ROUTE .COMPLEX Qty: 30 0RF Rx Instructions: orally per package directions No Action ibuprofen [Advil] 200 mg tablet 200 mg PO QID PRN (Reason: Pain (Scale Score 4-6)) 0RF ascorbic acid (vitamin C) 500 mg capsule 2,000 mg PO .QDAY 0RF Label Comments: Take 2 capsules by mouth once daily. cholecalciferol (vitamin D3) 25 mcg (1,000 unit) capsule 1,000 unit PO DAILY 0RF Label Comments: Take 2 softgels by mouth once daily. acetaminophen 650 MG tablet extended release 1,300 mg PO Q8HP PRN (Reason: Pain (Scale Score 1-3)) Qty: 0 0RF meloxicam 15 mg tablet 15 mg PO DAILY PRN (Reason: pain) Qty: 30 1RF Rx Instructions: DO NOT TAKE EVERYDAY. Do not take with other NSAIDs fluticasone propionate [Flonase Allergy Relief] 50 mcg/actuation spray,suspe nsion 1 spray intranasal DAILY Qty: 9.9 1RF Rx Instructions: administer into each nostril gabapentin 100 mg capsule See Rx Instructions .ROUTE .COMPLEX Qty: 90 0RF Dose Instruction: Take 1 to 3 capsules at bedtime for nerve pain Rx Instructions: Take 1 to 3 capsules at bedtime for nerve pain Referrals: Helio Pate MD [Primary Care Provider] -
[2021-10-28] MEDS: SODIUM CHLORIDE 0.9% 1,000 ML 1000 ML IV (10:45)
[2021-10-28 10:59] LABS: Alanine Aminotransferase 19 IU/L (<50); Albumin 3.8 g/dL (3.5-5.0); Albumin Globulin Ratio 1.2 (1.0-2.8); Alkaline Phosphatase 63 U/L (38-126); Aspartate Aminotransferase 28 IU/L (17-59); BUN Creatinine Ratio 18.8 (6-22); Bilirubin Total 0.5 mg/dL (0.2-1.3); Blood Urea Nitrogen 18 mg/dL (9-20); Calcium 8.4 mg/dL (8.4-10.2); Carbon Dioxide 28 mmol/L (22-32); Chloride 107 mmol/L (98-107); Estimated Glomerular Filt Rate > 60 mL/min (>60); Globulin 3.2 g/dL (1.7-4.1); Glucose 88 mg/dL (80-110); HEMOLYSIS < 15 (0-50); Lipase 37 U/L (23-300); Sodium 140 mmol/L (137-145)
[2021-10-28 11:33] LABS: Add Manual Diff / Slide Review NO; Basophils Absolute Auto 0 /uL (0-100); Basophils Percent Auto 0.2 % (0-2); Eosinophils Absolute Auto 0 /uL (0-450); Eosinophils Percent Auto 0.4 % (2-4); Hematocrit 37.9 % (41-53); Hemoglobin 12.6 g/dL (13.5-17.5); Lymphocytes Absolute Auto 400 /uL (1100-4500); Lymphocytes Percent Auto 8.5 % (25-40); Mean Corpuscular HGB Conc 33.2 % (30-36); Mean Corpuscular Hemoglobin 29.3 PG (26-34); Mean Corpuscular Volume 88.3 fL (80-100); Monocytes Absolute Auto 900 /uL (0-900); Monocytes Percent Auto 17.8 % (3-14); Neutrophils Absolute Auto 3700 /uL (1500-7000); Neutrophils Percent Auto 73.1 % (50-75); Platelet Count 159 X10^3/uL (150-400); Red Blood Cell Count 4.29 X10^6/uL (4.5-5.9); Red Cell Distribution Width 15.4 % (11.6-14.8); White Blood Cell Count 5.1 X10^3/uL (4.5-11.0)
[2021-10-28] MEDS: SODIUM CHLORIDE 0.9% 1,000 ML 500 ML IV (12:38)
--- NOTE | 2021-10-28 12:39 | PC.NURSE ---
pt tried to urinate again after drinking po fluids and completing ivf 1L. pt unable to begin urination. bladder scan done. 300ml in bladder and tenderness to pressing with scanner probe. md notified and orders obtained.
[2021-10-28 15:04] LABS: Amorphous Sediment Urine 1+; Bacteria Urine Occasional (0-1); Mucus Urine 1+ (Negative); RBC Urine None Seen (0-5/HPF); Squamous Epithelial Cell Urine 0-1 /HPF (0-5/HPF); WBC Urine 1-5/HPF (0-5/HPF)
--- NOTE | 2021-10-28 15:43 | PC.NURSE ---
update given to daughter blanca who lives in [place], provided by phone.
== END 2021-10-28 17:23 | disposition home or self-care (01) ==
PROVIDERS: Emergency Provider Emergency Medicine; PCP Family Medicine
DX: U07.1 COVID-19 (principal); R19.7 Diarrhea, unspecified; E86.0 Dehydration
CPT/HCPCS: 36415; 51798; 80053; 81003; 81015; 83690; 85025; 87086; 87635; 96360; 96361; 99284; C9803

== ENCOUNTER → 2021-11-13 10:53 | Outpatient (CLI) | payer OTHER, SELFPAY ==
[2021-11-13 11:26] LABS: COVID19 -Nasal RAPID Negative (Negative)
== END ==
PROVIDERS: PCP Family Medicine; Visit Provider Family Medicine
DX: Z20.822 Contact with and (suspected) exposure to COVID-19 (principal)
CPT/HCPCS: 87635

== ENCOUNTER → 2022-09-13 11:17 | Outpatient (CLI) | payer OTHER, SELFPAY ==
[2022-09-14 18:05] LABS: Fecal Immunochemical Test Positive (Negative)
== END ==
PROVIDERS: PCP Family Medicine; Referring Provider Family Medicine; Visit Provider Family Medicine
DX: Z12.11 Encounter for screening for malignant neoplasm of colon (principal)
CPT/HCPCS: 82274

== ENCOUNTER 2022-11-13 14:17 | Day surgery (SDC) | payer OTHER, SELFPAY ==
[2022-11-13 14:40] VITALS: BP 127/70; PULSE 87; RESP 21; TEMP 36.5; O2SAT 98; BMI 18.8
[2022-11-13] MEDS: LACTATED RINGERS 1,000 ML 120 ML IV (14:52)
--- NOTE | 2022-11-13 14:58 | SUR.PREOP ---
lives at [place], [place]. He is taking [facility] where the staff there is able to assist him and they provide his meals. Dr. Davis aware and ok with [facility].
--- NOTE | 2022-11-13 15:13 | P.HP_ITS ---
History of Present Illness History of Present Illness Date Patient Seen: 11/13/22 Time Patient Seen: 15:13 Chief complaint: Colonoscopy Narrative: 82-year-old man with a positive fecal immunochemical test here for diagnostic colonoscopy. Previous colonoscopies have been normal. No personal or family history of colon cancer. On further history denies any recent gastrointestinal symptoms. No nausea, vomiting, abdominal pain, loss of appetite, unexplained weight loss, change in bowel habits, or blood per rectum. 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 (Unknown) Cataracts, bilateral (Unknown) Degenerative disc disease, lumbar (Unknown) Elevated PSA (Unknown) Essential tremor (Unknown) Hearing deficit Onychomycosis Surgical History History of inguinal hernia repair (11/2013) Hx of cataract surgery Hx of removal of cyst (2009) Hx of vasectomy (1968) Family History Father Kidney disease Mother Heart disease Hypertension Brother Cancer Social History household members: other housing: other Previous occupational history: retired Smoking Status: Never smoker second hand exposure: No alcohol intake: former substance use type: does not use Meds Home Medications and Allergies Home Medications Medication Instructions Recorded Confirmed Type acetaminophen 650 mg 1,300 mg PO Q8HP PRN Pain (Scale 12/18/16 11/13/22 History tablet,extended release Score 1-3) ##0 ibuprofen 200 mg tablet (Advil) 200 mg PO QID PRN Pain (Scale 02/08/18 11/13/22 History Score 4-6) ascorbic acid (vitamin C) 500 mg 2,000 mg PO .QDAY 07/06/21 11/13/22 History capsule cholecalciferol (vitamin D3) 25 1,000 unit PO DAILY 07/06/21 11/13/22 History mcg (1,000 unit) capsule fluticasone propionate 50 1 spray intranasal DAILY #15 mL 11/13/21 11/13/22 Rx mcg/actuation nasal spray,suspension (Flonase Allergy Relief) meloxicam 15 mg tablet 15 mg PO DAILY PRN pain #30 tabs 11/13/21 11/13/22 Rx gabapentin 100 mg capsule See Rx Instructions .Route 02/02/22 11/13/22 Rx .COMPLEX #90 caps Allergies Allergy/AdvReac Type Severity Reaction Status Date / Time amoxicillin Allergy Intermediate headaches Verified 11/13/21 10:17 cephalexin Allergy Intermediate stomach Verified 11/13/21 10:17 pain tramadol AdvReac Severe Dizziness, Verified 11/13/21 10:17 insomnia and itching Exam Vital Signs (past 8 hours): - 11/13/22 14:40 Temperature 97.7 F Pulse Rate 87 Respiratory Rate 21 Blood Pressure 127/70 Pulse Oximetry 98 Oxygen Delivery Method Room Air Oxygen Delivery Method Room Air Narrative Exam Narrative: General elderly man alert hard of hearing no distress Abdomen soft nontender nondistended Assessment & Plan Assessment and plan (1) Positive FIT (fecal immunochemical test): Status: Acute Assessment & Plan narrative: 82-year-old man with a positive fecal immunochemical test here for diagnostic colonoscopy. Technical details were discussed. Risks, benefits, alternatives explained. Risks including but not limited to myocardial infarction, aspiration, bleeding, pain, missed lesion, incomplete examination, need for furt her radiographic studies, colonic perforation, and need for major abdominal surgery were discussed. All questions were answered to their satisfaction, and they are in agreement with this plan.
[2022-11-13 16:14] VITALS: BP 114/66; PULSE 71; RESP 16; TEMP 36.5; O2SAT 96
--- NOTE | 2022-11-13 16:15 | PM.OP.COLON ---
Operative Date/Time/Diagnoses Date of procedure: 11/13/22 Time of procedure: 16:15 Pre-op diagnosis: Positive fecal immunochemical test Post-op diagnosis: same Procedure & Clinicians Study performed: Colonoscopy Same procedure as scheduled: Yes Indications: Positive fecal immunochemical test Surgeon: Cam Davis Procedure Notes Procedure in detail: The history and physical was performed/updated and the patient is ASA class is 2. The procedure was discussed in detail with the patient. Potential risks complications including infection, bleeding, missed diagnosis, perforation, need for surgery, and were explained. Their questions were answered and informed consent was obtained. Patient was brought to the procedure room and placed standard monitoring equipment. The patient's vital signs were monitored continuously throughout the entire procedure. Prior to starting time-out was performed. The patient was placed in the left lateral recumbent position. Procedural sedation was administered by anesthesia. Examination began with a thorough inspection of the perianal area there was no evidence of fissures, fistulae, external hemorrhoids or cutaneous malignancy. The colonoscopy scope was then placed into the anal canal and was advanced to the cecum, which was identified by the ileocecal valve, the appendiceal orifice and the confluence of the taenia. The scope was then slowly withdrawn examining colon thoroughly in all directions, irrigating it of any residual stool. Quality of the preparation was poor. No large masses or polyps. Tortuous transverse and ascending colon The patient tolerated the procedure well. They will be discharged once criteria are met. The withdrawl time was 6 minutes. Specimen(s): none sent Impression: Normal colonoscopy Post-procedure Plan for aftercare: No further colonoscopy is necessary Disposition: same day surgery
[2022-11-13 16:18] VITALS: BP 113/66; PULSE 66; RESP 14; O2SAT 98
--- NOTE | 2022-11-13 16:21 | SUR.PHASEI ---
Report given to Cj Crisostomo RN.
[2022-11-13 16:25] VITALS: BP 114/66; PULSE 70; RESP 18; O2SAT 98
[2022-11-13 16:29] VITALS: BP 116/68; PULSE 63; RESP 11; TEMP 36.3; O2SAT 97
[2022-11-13 17:05] VITALS: BP 118/71; PULSE 81; RESP 16; TEMP 36.7; O2SAT 95
== END 2022-11-13 17:06 | disposition home or self-care (01) ==
PROVIDERS: PCP Family Medicine; Referring Provider Surgery; Visit Provider Surgery
PROC: 0DJD8ZZ Inspection of Lower Intestinal Tract, Via Natural or Artificial Opening Endoscopic (ICD-10-PCS; CPT 45378; principal; 2022-11-13 15:30)
DX: R19.5 Other fecal abnormalities (principal); Z12.11 Encounter for screening for malignant neoplasm of colon
CPT/HCPCS: 45378; J2704

== ENCOUNTER → 2023-02-20 13:57 | Outpatient (CLI) | payer OTHER, SELFPAY ==
[2023-02-20 15:01] LABS: Add Manual Diff / Slide Review NO; Basophils Absolute Auto 0 /uL (0-100); Eosinophils Absolute Auto 200 /uL (0-450); Hematocrit 37.5 % (41-53); Hemoglobin 12.5 g/dL (13.5-17.5); Lymphocytes Absolute Auto 600 /uL (1100-4500); Lymphocytes Percent Auto 15.5 % (25-40); Mean Corpuscular HGB Conc 33.2 % (30-36); Mean Corpuscular Hemoglobin 29.8 PG (26-34); Mean Corpuscular Volume 89.7 fL (80-100); Monocytes Absolute Auto 400 /uL (0-900); Monocytes Percent Auto 9.9 % (3-14); Neutrophils Absolute Auto 2900 /uL (1500-7000); Neutrophils Percent Auto 68.6 % (50-75); Platelet Count 178 X10^3/uL (150-400); Red Blood Cell Count 4.18 X10^6/uL (4.5-5.9); Red Cell Distribution Width 15.9 % (11.6-14.8); White Blood Cell Count 4.2 X10^3/uL (4.5-11.0)
[2023-02-20 15:19] LABS: Alanine Aminotransferase 18 IU/L (<50); Albumin 4.2 g/dL (3.5-5.0); Albumin Globulin Ratio 1.4 (1.0-2.8); Alkaline Phosphatase 69 U/L (38-126); Aspartate Aminotransferase 25 IU/L (17-59); BUN Creatinine Ratio 23.2 (6-22); Bilirubin Total 0.4 mg/dL (0.2-1.3); Blood Urea Nitrogen 19 mg/dL (9-20); Calcium 9.2 mg/dL (8.4-10.2); Carbon Dioxide 29 mmol/L (22-32); Chloride 100 mmol/L (98-107); Cholesterol 149 mg/dL (140-199); Estimated Glomerular Filt Rate > 60 mL/min (>60); Globulin 2.9 g/dL (1.7-4.1); Glucose 101 mg/dL (80-110); HDL Cholesterol 54 mg/dL (40-60); HEMOLYSIS < 15 (0-50); LDL Cholesterol Calculated 80 mg/dL (<100); Sodium 137 mmol/L (137-145); Total Protein 7.1 g/dL (6.3-8.2); Triglycerides 76 mg/dL (35-150)
[2023-02-20 15:48] LABS: Prostate Specific Antigen Scrn 13.5 ng/mL (0.1-4.0)
[2023-02-20 16:22] LABS: Creatinine Urine Random 66.1 mg/dL
[2023-02-20 16:40] LABS: Microalbumin Urine Random < 0.6 mg/dL (0-1.6)
== END ==
PROVIDERS: PCP Family Medicine; Referring Provider Family Medicine; Visit Provider Family Medicine
DX: D64.9 Anemia, unspecified (principal); Z12.5 Encounter for screening for malignant neoplasm of prostate; G25.0 Essential tremor; R19.5 Other fecal abnormalities
CPT/HCPCS: 36415; 80053; 80061; 82043; 82570; 85025; G0103